=== PATIENT | female | born 1995 | race Hispanic/Latino ===

== ENCOUNTER 2024-12-17 19:59 | Emergency (ER) | payer OTHER, SELFPAY ==
[2024-12-17 20:04] VITALS: BP 120/78
[2024-12-17 20:35] VITALS: BP 113/72
[2024-12-17 20:36] VITALS: BMI 35.3
[2024-12-17 21:00] VITALS: BP 106/67
--- NOTE | 2024-12-17 21:21 | ED.GENMED ---
History of Present Illness
General
Chief Complaint: Insect Sting
Time Seen by Provider: 12/17/24 20:48
History of Present Illness
History of Present Illness:
28-year-old female presents to the emergency department for evaluation of a possible bug bite to the scalp. She states she felt an abrupt pain to the scalp and pulled off a bug, she then used Google lens to determine if this was a [place] we
will bug that bit her. She reports she has a headache currently but denies any itching.
Review of Systems
Review of Systems
Allergies reviewed?: Yes
All Other Systems: ROS reviewed and negative except as documented in HPI and ROS
Phy Exam
Physical Exam
Physical Exam:
GEN: Well appearing, NAD, WDWN
HEENT: Oral mucosa moist, no scleral icterus, no visible skin lesions to the scalp
Cardiac: Regular rate
Lung: No respiratory distress, no tachypnea
MSK: No gross deformity or injuries
Skin: Good color, no pallor or jaundice, no rashes
Neuro: AO x3, moves all extremities freely
Psych: Calm, cooperative
Course
Orders/Labs/Results
Orders:
Orders
12/17/24 21:20
Diphenhydramine [Benadryl] 25 mg PO NOW STA
Ibuprofen [Motrin] 600 mg PO NOW STA
Vital Signs
Initial and Last Documented VS:
Initial Vital Signs
Temp Pulse Resp BP Pulse Ox
98.2 F 76 16 120/78 98
12/17/24 20:04 12/17/24 20:04 12/17/24 20:04 12/17/24 20:04 12/17/24 20:04
Last Documented Vital Signs
Temp Pulse Resp BP Pulse Ox
98.2 F 68 12 106/67 99
12/17/24 20:04 12/17/24 21:30 12/17/24 21:30 12/17/24 21:00 12/17/24 21:30
MDM/Problems Addressed
MDM/Problems Addressed:
Exam unremarkable
*Pulse Oximetry
SaO2: 99
Oxygen Mode of Delivery: Room air
Patient hypoxic: no
*Critical Care Note
Total Time (30-74mins, 75-104mins- exclusive of procedures): Not Applicable
ED Attending Note
-
Portions of this chart may have been created with voice recognition software.� Occasional wrong word or��sound alike� substitutions may have occurred due to the inherent limitations of voice recognition software.
Discharge Plan
Departure
Patient Disposition: Home (Routine Discharge)
Date of Disposition: 12/17/24
Time of Disposition: 21:23
Patient with high blood pressure during this ER visit?: No
Discharge Problem:
Insect bite
Instructions: Insect Bites and Stings (DC)
Interventions
Interventions:
*Risk Screen - Suicide Last Done: 12/17/24 21:30
*General Assessment Last Done: 12/17/24 20:36
*Neglect/Abuse Screening Last Done: 12/17/24 20:36
*ED- Fall Risk Assessment Last Done: 12/17/24 20:36
*ED COVID-19 Vaccine History Last Done: 12/17/24 20:36
*Nursing Disposition Last Done: 12/17/24 21:30
ED-Skin Assessment Last Done: 12/17/24 20:36
ED- Pulmonary Assessment Last Done: 12/17/24 20:36
Discharge Date and Time
Discharge Date/Time: 12/17/24 21:33
Print Language: M[place]ENEGR[place]
[2024-12-17] MEDS: MOTRIN 600 MG PO (21:24)
[2024-12-17] MEDS: BENADRYL 25 MG PO (21:24)
== END 2024-12-17 21:33 | disposition home or self-care (01) ==
LOC: EMR 19:59
PROVIDERS: EMERGENCY PHYSICIAN Student in an Organized Health Care Education/Training Program
DX: S00.07XA Other superficial bite of scalp, initial encounter (principal); W57.XXXA Bitten or stung by nonvenomous insect and other nonvenomous arthropods, initial encounter
CPT/HCPCS: 99283

== ENCOUNTER 2025-01-08 12:39 | Emergency (ER) | payer OTHER, SELFPAY ==
[2025-01-08 12:46] VITALS: BP 122/84
[2025-01-08 15:18] VITALS: BP 111/71
[2025-01-08] MEDS: MOTRIN 400 MG PO (15:35)
[2025-01-08 16:30] LABS: COVID-19 Antigen Negative (Negative)
--- NOTE | 2025-01-08 16:55 | ED.GENMED ---
History of Present Illness
General
Chief Complaint: Cold/Flu/URI Symptoms
Source: patient
Exam Limitations: none
Time Seen by Provider: 01/08/25 14:18
Nursing documentation reviewed up to this point in time: agreed with
History of Present Illness
History of Present Illness:
Pt without sig. medical history, presents to ED secondary to 4 day history of persistent nasal congestion, ear pain, body ache, sore throat, and nonproductive cough. Denies loss of appetite. Pt has been drinking fluids. Denies headache. Denies neck
pain. Denies rash. Denies vomiting/diarrhea. Denies recent travel. 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 Pt's daughter at home has similar symptoms.
Review of Systems
Review of Systems
Allergies reviewed?: Yes
All Other Systems: ROS reviewed and negative except as documented in HPI and ROS
Constitutional: Reports fever
EENT: Reports sore throat and other (nasal congestion)
Respiratory: Reports cough
Cardiac: Reports no symptoms
ABD/GI: Reports no symptoms
Musculoskeletal: Reports muscle pain
Skin: Reports no symptoms
Neurological: Reports no symptoms
Phy Exam
Physical Exam
Physical Exam:
General: well appearing female, in no acute distress. afebrile
Heent: nc/at. eomi. TM: normal. normal pharynx
Lungs: cta
Heart: rrr. no murmur
Abd: soft and nontender
Neuro: aao x 3. no focal neurological deficit
Skin: warm to touch. no rash
Psych: pleasant and cooperative
Course
Orders/Labs/Results
Orders:
Orders
01/08/25 14:39
Ibuprofen [Motrin] 400 mg PO NOW STA
01/08/25 15:58
COVID-19 Antigen Urgent
Source: Nasal Swab
Monotest Urgent
Influenza A+B Rapid Molecular Urgent
MEGHA Source: Nasal Swab
Specimen Description:
Vital Signs
Initial and Last Documented VS:
Initial Vital Signs
Temp Pulse Resp BP Pulse Ox
98.8 F 95 20 122/84 94
01/08/25 12:46 01/08/25 12:46 01/08/25 12:46 01/08/25 12:46 01/08/25 12:46
Last Documented Vital Signs
Temp Pulse Resp BP Pulse Ox
98.7 F 86 18 111/71 99
01/08/25 15:18 01/08/25 15:18 01/08/25 15:18 01/08/25 15:18 01/08/25 16:57
MDM/Problems Addressed
MDM/Problems Addressed:
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 Otherwise, patient is afebrile, hemodynamically stable,
without any evidence of dehydration or respiratory distress, at time of discharge. Will be given z-sylvester for potential bronchitis, as well as it's anti-inflammatory effect. Pt expresses understanding at time of discharge
*Pulse Oximetry
SaO2: 99
Oxygen Mode of Delivery: Room air
Patient hypoxic: no
*Critical Care Note
Total Time (30-74mins, 75-104mins- exclusive of procedures): Not Applicable
ED Attending Note
-
Portions of this chart may have been created with voice recognition software.� Occasional wrong word or��sound alike� substitutions may have occurred due to the inherent limitations of voice recognition software.
Discharge Plan
Departure
Patient Disposition: Home (Routine Discharge)
Date of Disposition: 01/08/25
Time of Disposition: 16:59
Patient with high blood pressure during this ER visit?: No
Condition: Good
Discharge Problem:
Acute viral syndrome
Instructions: Viral Syndrome (DC)
Prescriptions:
New
azithromycin [Zithromax Z-Sylvester] 250 mg tablet
250 mg PO DAILY 6 Days Qty: 6 0RF
Referrals:
NONE,* [Family Provider, Internal Medicine]
Stand Alone Forms: Return to Work
Activity Restrictions/Additional Instructions:
As discussed, please follow-up with your primary care physician with any further concerns. Please consider return to ED with worsening symptoms
Interventions
Interventions:
*Risk Screen - Suicide Last Done: 01/08/25 12:46
*General Assessment Last Done: 01/08/25 15:18
*Neglect/Abuse Screening Last Done: 01/08/25 12:46
*ED- Fall Risk Assessment Last Done: 01/08/25 15:18
*ED COVID-19 Vaccine History Last Done: 01/08/25 15:18
*Nursing Disposition Last Done: 01/08/25 17:17
ED- Pulmonary Assessment Last Done: 01/08/25 15:18
Discharge Date and Time
Discharge Date/Time: 01/08/25 17:18
Print Language: AMHARIC
== END 2025-01-08 17:18 | disposition home or self-care (01) ==
LOC: EMR 12:39
PROVIDERS: EMERGENCY PHYSICIAN Emergency Medicine
DX: B34.9 Viral infection, unspecified (principal)
CPT/HCPCS: 99283; 86308; 87502; 87811